=== PATIENT | male | born 1970 | race Caucasian/White ===

== ENCOUNTER 2022-05-18 22:28 | Emergency (ER) | payer MEDICAID, SELFPAY ==
[2022-05-18 22:43] VITALS: BP 135/81; PULSE 69; RESP 18; TEMP 36.6; O2SAT 96
--- NOTE | 2022-05-18 22:45 | RT.EKG_ITS ---
APPROVED REPORT Exam: Resting ECG Reason for Exam: abdominal pain Patient Location: E HR:74 bpm ECG Measurements Heart Rate 74 AXIS SC 164 P 58 QRSd 90 QRS 42 QT 383 T 19 QTc 426 Conclusion Sinus rhythm...normal P axis, V-rate 60- 99
[2022-05-18 23:15] VITALS: RESP 18
--- NOTE | 2022-05-18 23:15 | DI.CT_ITS ---
Exam(s) CT ABDOMEN PELVIS W EXAM: CT ABDOMEN PELVIS W CLINICAL HISTORY: epigastric pain, vomiting TECHNIQUE: Imaging Protocol: Axial computed tomography images with coronal and sagittal reformatted images were created and reviewed CONTRAST MATERIAL: Intravenous: Omnipaque 350 Contrast volume:100 mL Oral: No COMPARISON: No exams were available for comparison FINDINGS: ABDOMEN: Lung Bases: Normal where visualized. Liver: Normal density. No measurable mass. Portal, Superior Mesenteric, and Splenic Veins: Unremarkable. Gallbladder and Biliary Tract: Multiple stones are seen within the gallbladder and the common duct. There is a 6 mm calcification along the course of the distal common bile duct concerning for choledoc holithiasis. No significant biliary ductal dilatation is present. The common duct measures less alejandro n 7 mm. Pancreas: Normal density, no abnormal calcifications or inflammatory process. Spleen: Normal. Adrenals: No masses seen. Kidneys: Normal size, contour and axis. No radiodense stones or obstructive uropathy. No masses seen. Abdominal Aorta: Abdominal portion non-dilated. Bowel: No obstruction or bowel wall thickening. No evidence of appendicitis. Peritoneal Cavity: No ascites, collection or mesenteric inflammatory response. No free air. Lymph Nodes: Within normal limits. Bones: Within normal limits for the patient's age. Soft Tissues: Unremarkable. PELVIS: Bladder: Symmetric distention, no gross wall thickening. Reproductive Organs: Unremarkable as visualized. Lymph Nodes: Within normal limits. Bones: Within normal limits for the patient's age. IMPRESSION: 1. Cholelithiasis and choledocholithiasis. No CT evidence of acute cholecystitis. No intrahepatic b iliary ductal dilatation. 2. Unremarkable pancreas. RADIATION DOSE DELIVERED: 796.06mGy.cm Total DLP DATA REPOSITORY: All CT scans at this facility are submitted to the National Radiology Data Registry (NRDR) Dose Index Registry (DIR) with the [employer] (ACR). RADIATION OPTIMIZATION: All CT scans at this facility use at least one of these dose optimization te chniques: automated exposure control; mA and/or kV adjustment per patient size (includes targeted exa ms where dose is matched to clinical indication); or iterative reconstruction.
[2022-05-18 23:19] LABS: Abs Immature Grans 0.02 10^3/uL (0.0-0.06); Absolute Basophil Count 0.01 10^3/uL (0.0-0.2); Absolute Eosinophil Count 0.15 10^3/uL (0.0-0.7); Absolute Lymphocyte Count 2.53 10^3/uL (1.2-3.4); Absolute Monocyte Count 0.64 10^3/uL (0.1-0.8); Absolute Neutrophil Count 4.76 10^3/uL (1.2-6.7); Basophils % 0.1; Eosinophils % 1.8; Immature Grans % 0.2; Lymphocytes % 31.2; MCH 30.9 pg (27.0-33.0); MCHC 34.1 % (32.0-36.0); MCV 91 fL (80-95); MPV 9.5 fL (8.0-11.0); Monocytes % 7.9; Neutrophils % 58.8; Platelet Count 234 10^3/uL (130-400); RBC 4.53 10^6/uL (4.36-5.78); RDW 12.5 % (11.8-14.1); RDW-SD 41.8 fL; WBC 8.11 10^3/uL (4.4-10.8)
[2022-05-18] MEDS: Normal Saline 1,000 ML 1000 ML IV (23:26)
[2022-05-18] MEDS: Ondansetron 4 MG/2 ML VIAL IVP (23:27)
[2022-05-18] MEDS: HYDROmorphone 2 MG/ML VIAL 1 MG IVP (23:27)
[2022-05-18] MEDS: Ketorolac 15 MG/ML VIAL IVP (23:27)
--- NOTE | 2022-05-18 23:27 | ED.GENADUL_ITS ---
Discharge Plan Disposition Patient Disposition: HOME Condition: Improving Discharge Details Chief Complaint: GenMedical Clinical Impression: Biliary colic Primary Care Provider: None,None ED Provider: Sandip Santos Discharge Instructions Instructions: Abdominal Pain (ED) Additional Instructions: Home to rest today. Our care managers will arrange outpatient follow-up for you in general surgery clinic. I recommend you observe a clear liquid diet for 12 to 24 hours and then may slowly progress to a bland diet. Avoid fatty, fried, dairy or other heavy/greasy foods. Zofran if needed for nausea. May use the provided hydrocodone if needed for se silvia or breakthrough pain. Return if develop a fever, increased pain, uncontrolled vomiting, jaundice, or any other acute concerns. Medical Decision Making 51-year-old male who reports sudden onset of epigastric pain after eating spaghetti and then subsequently cheese cake for dessert. He was at the table when he developed epigastric pain radiating to his back with associated nausea and vomiting. EMS was called he was given aspirin which she vomited and subsequently Zofran with some improvement. He arrives with recurrent waves of pain. He is afebrile and normotensive. Patient is tender in his epigastrium and right upper quadrant. Most suspicious for biliary colic, must exclude pancreatic or other biliary process. Patient IV access established, given analgesic, antiemetic, referred for laboratories and CT imaging. Laboratories White count of 8, hematocrit 41, platelets are 234. Chemistries with reassuring electrolytes, total bili 0.2, AST 94, ALT 52. Lipase 465. CT reveals a 6 x 4 x 3 mm stone in the distal most common bile duct. No pancreatic ductal dilatation or evidence of pancreatitis. Gallstones present with no evidence of cholecystitis. Patient improved following fluids and medications. Patient will require further work-up, likely with MRCP. Given current pandemic related pressures on the local referral system I feel it is best to follow-up with our general surgery clinic. We will arrange outpatient follow-up. He understands to return for recurrent pain, fever, jaundice, or any other acute concerns. He was consented for the use of a small number of narcotic analgesics. He will return for any acute concerns. Lab Data Lab results reviewed: Yes I reviewed the patient's lab results. Labs: Laboratory Results - last 24 hr 05/18/22 05/18/22 05/19/22 23:00 23:00 02:05 WBC 8.11 RBC 4.53 Hgb 14.0 Hct 41.0 MCV 91 MCH 30.9 MCHC 34.1 RDW 12.5 Plt Count 234 MPV 9.5 Immature Gran % 0.2 Neutrophils % 58.8 Lymphocytes % 31.2 Monocytes % 7.9 Eosinophils % 1.8 Basophils % 0.1 Nucleated RBC % 0.0 Absolute Neutrophils 4.76 Absolute Lymphocytes 2.53 Absolute Monocytes 0.64 Absolute Eosinophils 0.15 Absolute Basophils 0.01 Sodium 143 Potassium 3.8 Chloride 105 Carbon Dioxide 29.9 Anion Gap 8.1 BUN 16 Creatinine 1.2 Estimated GFR/1.73 m2 >= 60.00 Glucose 98 Calcium 8.4 L Magnesium 2.1 Total Bilirubin 0.2 AST 94 H ALT 52 Alkaline Phosphatase 107 Troponin I < 50 Cancelled Total Protein 6.9 Albumin 3.7 HPI General Mode of arrival: EMS . Date/Time Provider Initiated Documentation: 05/18/22 22:41 . Limitations to Documentation: no limitations . Information obtained by: patient and EMS . History of Present Illness 51 year old M presents to the emergency department with the chief complaint of Epigastric pain after eating dessert, described as moderate and severe, and is localized to the abdomen. Patient reports radiation to back. Patient started experiencing this minute(s) and it has been intermittent. No relieving factors improve symptom(s), No exacerbating factors reported . Patient notes nausea/vomiting. Patient did receive the following treatments prior to arrival, other (Zofran) Related Data Allergies Allergy/AdvReac Type Severity Reaction Status Date / Time No Known Allergies Allergy Unverified 05/18/22 22:47 General Stated Complaint: GenMedical HATTIE: 3 Review of Systems Narrative: No previous episodes, no abdominal surgeries. Recently well. 7 systems reviewed and otherwise negative PFSH All Active Problems (Updated 05/19/22 @ 01:32 by Sandip Santos MD) Biliary colic (Acute) Social History Smoking/Tobacco Use Status: Never Smoking risk assessment performed?: Yes Alcohol Intake: never Substance use type: does not use Do you feel safe at home: Yes Do you feel safe in your relationship?: Yes Exam Narrative Exam Narrative: GEN: awake, alert, oriented 3. Pleasant, well groomed, interactive. HEAD: Normocephalic, atraumatic ENT: Mucous membranes moist, oropharynx unremarkable, External ear exam unremarkable EYES: PERRL, EOMI NECK: Full ROM, no DEANA, no menigismus CHEST/RESP: Nontender, clear to auscultation bilateral, no wheeze/rhonchi/rales CARDIOVASCULAR: RRR, no murmur, rub ant. 2+ Rad pulse bilateral ABDOMEN: Soft, tender in epigastrium and right upper quadrant, no mass. +Bowel sounds EXT: Full ROM, no edema, no rash Neuro: Grossly normal neurologic exam, conversant, interactive. Psych: Speech fluent, thoughts congruent, affect normal Course Vital Signs Vital signs: Vital Signs Temperature 36.6 C 05/18/22 22:43 Pulse 69 05/18/22 22:43 Respiratory Rate 18 05/18/22 22:43 Blood Pressure 135/81 05/18/22 22:43 Pulse Oximetry 96 05/18/22 22:43 Temperature 36.6 C 05/18/22 22:43 Temperature Source Temporal Artery Scan 05/18/22 22:43 Pulse 69 05/18/22 22:43 Respiratory Rate 18 05/18/22 23:15 Respiratory Effort Non-Labored 05/18/22 23:15 Respiratory Depth Normal 05/18/22 23:15 Respiratory Pattern Normal 05/18/22 23:15 Blood Pressure 135/81 05/18/22 22:43 Pulse Oximetry 96 05/18/22 22:43 Oxygen Delivery Method Room Air 05/18/22 22:43 Oxygen Flow Rate 0 05/18/22 22:43 Pain Level 2 05/18/22 22:43 Lab/Test Results Lab/Test Results: Laboratory Tests Range/Units 05/18/22 23:00 WBC (4.4-10.8) 10^3/uL 8.11 RBC (4.36-5.78) 10^6/uL 4.53 Hgb (13.5-17.5) g/dL 14.0 Hct (40.0-50.0) % 41.0 MCV (80-95) fL 91 MCH (27.0-33.0) pg 30.9 MCHC (32.0-36.0) % 34.1 RDW (11.8-14.1) % 12.5 Plt Count (130-400) 10^3/uL 234 MPV (8.0-11.0) fL 9.5 Immature Gran % 0.2 Neutrophils % 58.8 Lymphocytes % 31.2 Monocytes % 7.9 Eosinophils % 1.8 Basophils % 0.1 Nucleated RBC % (0.0-0.3) % 0.0 Absolute Neutrophils (1.2-6.7) 10^3/uL 4.76 Absolute Lymphocytes (1.2-3.4) 10^3/uL 2.53 Absolute Monocytes (0.1-0.8) 10^3/uL 0.64 Absolute Eosinophils (0.0-0.7) 10^3/uL 0.15 Absolute Basophils (0.0-0.2) 10^3/uL 0.01
[2022-05-18 23:42] LABS: ALT 52 U/L (16-63); AST 94 U/L (15-37); Albumin 3.7 g/dL (3.4-5.0); Alkaline Phosphatase 107 U/L (46-116); Anion Gap 8.1 mmol/L (3-11); BUN 16 mg/dL (7-18); Bilirubin, Total 0.2 mg/dL (0.2-1.0); CO2 29.9 mmol/L (21.0-32.0); CREATININE 1.2 mg/dL (0.70-1.30); Calcium 8.4 mg/dL (8.5-10.1); Chloride 105 mmol/L (98-107); Glucose 98 mg/dL (74-106); Magnesium 2.1 mg/dL (1.8-2.4); Potassium 3.8 mmol/L (3.5-5.1); Sodium 143 mmol/L (136-145); Total Protein 6.9 g/dL (6.4-8.2); Troponin I < 50 ng/L (<or=60)
[2022-05-19] MEDS: Omnipaque 350 MG/ML 100 ML BTL IJ (00:02)
--- NOTE | 2022-05-19 00:10 | NUR.NOTE ---
Faxed referral to General Surgery and put in critical care physician's box for follow up.Nursing Note:
--- NOTE | 2022-05-19 00:13 | NUR.NOTE ---
Patient does not have a PCP and has not had one in twenty years, but is interested in getting set up with one. Put referral in care manger's box for assistance.Nursing Note:
--- NOTE | 2022-05-19 00:57 | DI.VRAD_ITS ---
PROCEDURE INFORMATION: Exam: CT Abdomen And Pelvis With Contrast Exam date and time: 05/18/2022 11:56 PM Age: 51 years old Clinical indication: Nausea and vomiting; Abdominal pain; Epigastric; Additional info: Epigastric pain, nausea vomiting TECHNIQUE: Imaging protocol: Computed tomography of the abdomen and pelvis with contrast. Radiation optimization: All CT scans at this facility use at least one of these dose optimization techniques: automated exposure control; mA and/or kV adjustment per patient size (includes targeted exams where dose is matched to clinical indication); or iterative reconstruction. Contrast material: OMNI 350; Contrast volume: 100 ml; Contrast route: INTRAVENOUS (IV); COMPARISON: No relevant prior studies available. FINDINGS: Lungs: Visualized lung bases are clear. Heart: Heart size normal. Mediastinal space: The visualized distal esophagus is largely contracted without gross abnormality. Liver: Normal contour. No mass lesions. Slight intrahepatic biliary ductal dilatation. Gallbladder and bile ducts: The gallbladder contains layering calcific content in the lumen near the neck suggesting calcific sludge or small stones. 6 mm calcific stone distal to this in the neck lumen also noted. No gallbladder wall thickening or adjacent stranding to suggest cholecystitis. Slight dilatation of the proximal common bile duct measuring 6 mm diameter although it has a fairly normal caliber distally at 4.5 mm diameter. There is a 6 x 4 x 3 mm calcification along the course of the distal most common bile duct at the level of the ampulla concerning for a duct stone. Pancreas: Normal. No inflammatory changes or ductal dilation. Spleen: Normal. No splenomegaly. Adrenal glands: Normal. No adrenal mass. Kidneys and ureters: No acute abnormalities. No hydronephrosis or hydroureter. No urinary tract stones are identified. Stomach and bowel: The stomach is largely contracted without gross abnormality. The small bowel is nondilated with no gross abnormality. No acute colonic abnormalities. Appendix: The appendix is normal in caliber and demonstrates no evidence of appendicitis. Intraperitoneal space: No free fluid or air. Vasculature: No acute process. No abdominal aortic aneurysm. Lymph nodes: No adenopathy. Urinary bladder: Unremarkable as visualized. Reproductive: Unremarkable as visualized. Bones/joints: No acute osseous abnormalities. Moderate disc degenerative changes L5-S1 with slight retrolisthesis and 4 mm disc bulge. Soft tissues: Very small fatty umbilical hernia . No evidence of associated bowel herniation or strangulation. IMPRESSION: 1. There is a 6 x 4 x 3 mm stone in the distal most common bile duct with only slight associated dilatation of the common duct currently. Clinical/laboratory correlation recommended to exclude evidence of biliary obstruction. 2. No pancreatic ductal dilatation or evidence of pancreatitis. 3. Gallstones with no features of cholecystitis. 4. Additional nonemergent findings detailed above. Dictated and Authenticated by: Marcelo Casanova MD. Ordering:KWABENA Oropeza MD
[2022-05-19 01:00] VITALS: BP 130/71; RESP 13; TEMP 36.5; O2SAT 96
[2022-05-19 01:27] LABS: Lipase 465 U/L (73-393)
[2022-05-19 01:56] VITALS: BP 131/68; PULSE 90; RESP 16; TEMP 36.6; O2SAT 98
--- NOTE | 2022-05-19 11:08 | PDOC.ERCMACT ---
- If Service Date Differs Date of service: 05/19/22 Time of Service: 11:09 Care Management Activity Note Dre is seen in the ED for biliary colic. At the request of ED provider, CM coordinates a referral to BARB Hyatt, of [facility], on-call provider, to assist Dre in obtaining a follow up appointment and in establishing care with a PCP. The ED has already referred [facility] to [facility]. He has Medicaid for insurance.
== END 2022-05-19 01:50 | disposition home or self-care (01) ==
PROVIDERS: Emergency Provider Emergency Medicine
DX: K80.50 Calculus of bile duct without cholangitis or cholecystitis without obstruction (principal)
CPT/HCPCS: 36415; 80053; 83690; 93005; 96361; 96374; 96375; 99285; 74177; 81003; 83735; 84484; 85025; 93010; 99284; J1885; J2405; J3490